=== PATIENT | female | born 1980 | race Caucasian/White ===

== ENCOUNTER 2019-04-07 18:18 | Emergency (ER) | payer OTHER, BC ==
[2019-04-07 20:09] LABS: URINE BLOOD (Dip) POC Trace-intact (NEGATIVE); URINE GLUCOSE (Dip) POC Negative (NEGATIVE); URINE KETONES (Dip) POC Negative (NEGATIVE); URINE LEUKOCYTE EST (Dip) POC Negative (NEGATIVE); URINE NITRITE (Dip) POC Negative (NEGATIVE); URINE TOTAL PROTEIN POC Negative (NEGATIVE)
== END 2019-04-07 22:07 | disposition home or self-care (01) ==
LOC: FTE 18:18
DX: R10.2 Pelvic and perineal pain (principal)
CPT/HCPCS: 81003; 81025; 87210; 87591; 99284

== ENCOUNTER 2019-05-03 19:01 | Emergency (ER) | payer OTHER | END 2019-05-03 19:25 | disposition home or self-care (01) | LOC: E/R 19:25 | DX: J06.9 Acute upper respiratory infection, unspecified (principal) | CPT/HCPCS: 99282; Z7502 ==